=== PATIENT | male | born 1940 | race Caucasian/White ===

== ENCOUNTER 2019-01-13 00:27 | Emergency (ER) | payer MEDICARE ==
[~2019-01-13] VITALS: Ht 185.4 cm; Wt 83.9 kg
[2019-01-13 00:27] VITALS: BP_SYST 177
[2019-01-13] MEDS ORDERED: NOR10 PO (00:45)
[2019-01-13] MEDS ORDERED: LEVO75TA7 PO (00:45)
[2019-01-13] MEDS ORDERED: MV,C1TAB21 PO (00:46)
[2019-01-13] MEDS ORDERED: CARV12.548 PO (00:47)
[2019-01-13] MEDS ORDERED: CALC1TAB26 PO (00:48)
[2019-01-13] MEDS ORDERED: SER25 PO ×2 (00:49)
[2019-01-13] MEDS ORDERED: THIA100T70 PO (00:50)
[2019-01-13] MEDS ORDERED: ASPI-1153 PO (00:50)
[2019-01-13] MEDS ORDERED: LORA-258 PO (00:51)
[2019-01-13] MEDS ORDERED: LEUP22.53 IM (00:55)
[2019-01-13 02:00] VITALS: BP_SYST 134
== END 2019-01-13 02:00 | disposition home or self-care (01) ==
LOC: SED 00:27
DX: S73.102A Unspecified sprain of left hip, initial encounter (principal); E03.9 Hypothyroidism, unspecified; F03.90 Unspecified dementia, unspecified severity, without behavioral disturbance, psychotic disturbance, mood disturbance, and anxiety; I10 Essential (primary) hypertension; Z88.0 Allergy status to penicillin; Z88.6 Allergy status to analgesic agent; Z79.82 Long term (current) use of aspirin; Z79.899 Other long term (current) drug therapy; Z96.653 Presence of artificial knee joint, bilateral; W19.XXXA Unspecified fall, initial encounter; Y93.89 Activity, other specified; Y92.89 Other specified places as the place of occurrence of the external cause; Y99.8 Other external cause status
CPT/HCPCS: 73502; 99283